=== PATIENT | male | born 1950 | race Caucasian/White ===

== ENCOUNTER 2019-12-14 09:11 | Outpatient (CLI) | payer OTHER, SELFPAY ==
--- NOTE | 2019-12-14 11:00 | NEURO_ITS ---
Patient Number: [id number] Impression: # Complains of restless legs and balance problems. 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 # Needle/EMG exam consistent with bilateral neurogenic change in distal muscles. Nerve Conduction Studies Anti Sensory Summary Table Stim Site NR Peak (ms) P-T Amp (?V) Site1 Site2 Delta-P (ms) Dist (cm) Brandt (m/s) Left Sup Fibular Anti Sensory (Ant Lat Mall) 14 cm 6.4 4.2 14 cm Ant Lat Mall 6.4 16.0 25 Right Sup Fibular Anti Sensory (Ant Lat Mall) 14 cm 3.7 1.6 14 cm Ant Lat Mall 3.7 16.0 43 Left Sural Anti Sensory (Lat Mall) Calf 6.1 6.8 Calf Lat Mall 6.1 16.0 26 Right Sural Anti Sensory (Lat Mall) Calf 4.5 15.8 Calf Lat Mall 4.5 16.0 36 Motor Summary Table Stim Site NR Onset (ms) O-P Amp (mV) Site1 Site2 Delta-0 (ms) Dist (cm) Brandt (m/s) Left Peroneal Motor (Vastus Med) Ankle 6.7 1.3 Popit Ankle 11.3 40.0 35 Popit 18.0 1.7 Right Peroneal Motor (Vastus Med) Ankle 5.9 1.8 Popit Ankle 10.4 41.0 39 Popit 16.3 2.6 Left Tibial Motor (Abd Lynn Brev) Ankle 5.6 5.1 Knee Ankle 14.0 42.0 30 Knee 19.6 2.9 Right Tibial Motor (Abd Lynn Brev) Ankle 6.0 4.3 Knee Ankle 12.4 44.0 35 Knee 18.4 2.9 F Wave Studies NR F-Lat (ms) L-R F-Lat (ms) Left Peroneal (Mrkrs) (EDB) 63.45 0.48 Right Peroneal (Mrkrs) (EDB) 62.97 0.48 Left Tibial (Mrkrs) (Abd Hallucis) 64.65 1.64 Right Tibial (Mrkrs) (Abd Hallucis) 63.01 1.64 EMG Side Muscle Nerve Root Ins Act Fibs Amp Dur Recrt Comment Right AntTibialis Dp Br Fibular L4-5 Nml Nml Nml Nml Nml Right Gastroc Tibial S1-2 Nml Nml Nml Nml Nml Right Fibularis Long Sup Br Fibular L5-S1 Nml Nml Nml Nml Nml Right Flex Dig Long Tibial L5-S2 Nml Nml Nml Nml Nml Right Ext Dig Brev Dp Br Fibular L5, S1 Nml Nml Decr >12ms Reduced Left AntTibialis Dp Br Fibular L4-5 Nml Nml Nml Nml Nml Left Gastroc Tibial S1-2 Nml Nml Nml Nml Nml Left Fibularis Long Sup Br Fibular L5-S1 Nml Nml Nml Nml Nml Left Flex Dig Long Tibial L5-S2 Nml Nml Nml Nml Nml Left Ext Dig Brev Dp Br Fibular L5, S1 Nml Nml Decr >12ms Reduced Right QuadratusFem QuadFemoris L4-5, S1 Nml Nml Nml Nml Nml Left QuadratusFem QuadFemoris L4-5, S1 Nml Nml Nml Nml Nml Left AbdHallucis MedPlantar S1-2 Nml Nml Decr >12ms Reduced Right AbdHallucis MedPlantar S1-2 Nml Nml Decr >12ms Reduced MTDD
== END 2019-12-14 09:12 | disposition home or self-care (01) ==
PROVIDERS: PCP Emergency Medicine; Visit Provider Emergency Medicine
DX: G25.81 Restless legs syndrome (principal); R20.2 Paresthesia of skin; M54.42 Lumbago with sciatica, left side; G89.29 Other chronic pain; G62.89 Other specified polyneuropathies
CPT/HCPCS: 95886; 95910

== ENCOUNTER 2021-07-06 08:03 | Emergency (ER) | payer OTHER, SELFPAY ==
[2021-07-06 08:15] VITALS: BP 121/73; PULSE 101; RESP 16; TEMP 36.3; O2SAT 98
[2021-07-06 08:26] VITALS: BP 121/73; PULSE 101; RESP 16; TEMP 36.3; O2SAT 98
--- NOTE | 2021-07-06 08:26 | ED.URI ---
HPI - URI/Sore Throat General Chief Complaint: Upper Respiratory Infection Stated Complaint: congestion Time Seen by Provider: 07/06/21 08:26 Source: patient and RN notes reviewed Mode of arrival: ambulatory Limitations: no limitations History of Present Illness HPI Narrative: 70-year-old male presents with concern for persistent cough, feeling of chest congestion, rhinorrhea and postnasal drainage. Reports symptoms started 8 days ago. Reports he had a negative PCR Covid test on . Reports he has been taking Mucinex DM with little relief. Reports cough worsens at night when he lies down. He denies nausea, vomiting, diarrhea. Denies sore throat or ear pain. Denies shortness of breath. MD elicited complaint: cough Related Data Home Medications Medication Instructions Recorded Confirmed fluticasone propionate 50 1 spray INTRANASAL BID 03/07/21 07/06/21 mcg/actuation nasal spray,suspension multivitamin 1 tablet PO DAILY 03/07/21 07/06/21 ropinirole 0.5 mg tablet 0.5 mg PO DAILY tablet 03/07/21 07/06/21 Allergies Allergy/AdvReac Type Severity Reaction Status Date / Time No Known Allergies Allergy Verified 06/09/21 14:54 Review of Systems Review of Systems: CONSTITUTIONAL: Denies malaise, chills, sweats, or fever. EYES: Denies visual changes, redness, or discharge. ENT: Reports rhinorrhea, postnasal drainage. Denies congestion, sinus pain, otalgia and sore throat. CARDIOVASCULAR: Denies chest pain, palpitations, or edema. RESPIRATORY: Reports cough. Denies dyspnea. GASTROINTESTINAL: Denies abdominal pain, nausea, vomiting, diarrhea SKIN: Denies rash or itching. MUSCULOSKELETAL: Denies myalgia. NEUROLOGIC: Denies headache. All systems reviewed & are unremarkable except as noted in HPI and below PMFSH Social History Social History Smoking status: Never smoker Alcohol intake: current Comments At time of signature, agree with nursing past medical, surgical, social and family history. There is no relevant family history pertinent to the presenting complaint Exam Narrative: GENERAL: Well-appearing, well-nourished, and in no acute distress. HEAD: Normocephalic EYES: PERRLA, conjunctivae clear ENT: Nares clear, clear discharge. Mucous membranes moist. TM pearly pierre with sharp light reflex bilaterally; no tragal tenderness. Oropharynx not erythematous without lesions. Tonsils not enlarged and without exudate, no drooling, no hoarseness, no trismus, uvula midline. NECK: Supple. No lymphadenopathy CHEST: Clear to auscultation, breath sounds equal. No wheezing, rhonchi, rales, or stridor. No respiratory distress, speaks in full sentences. HEART: Regular rate and rhythm. No murmur heard. SKIN: Warm, dry, no rash. NEURO: Alert and oriented x3. PSYCH: Normal mood and affect Course Course Emergency Course: Patient is aware of diagnosis, understands and agrees to treatment plan. Anticipatory guidance given. Patient agrees to follow-up as directed and is aware of reasons to seek care at the emergency department. Portions of this record may have been created with voice recognition software Vital Signs Vital signs: Vital Signs Temperature 97.3 F L 07/06/21 08:15 Pulse Rate 101 H 07/06/21 08:15 Respiratory Rate 16 07/06/21 08:15 Blood Pressure 121/73 07/06/21 08:15 Pulse Oximetry 98 07/06/21 08:15 Temperature 97.3 F L 07/06/21 08:26 Pulse Rate 101 H 07/06/21 08:26 Respiratory Rate 16 07/06/21 08:26 Blood Pressure 121/73 07/06/21 08:26 Pulse Oximetry 98 07/06/21 08:26 Reviewed. MDM - URI/Sore Throat MDM Narrative Medical decision making narrative: Differential diagnosis considered: Chambers virus, strep pharyngitis, allergic rhinitis, upper respiratory tract infection, sinusitis, rhinosinusitis, nasopharyngitis. viral pharyngitis, otitis media, otitis externa, pneumonia, bronchitis, viral cough syndrome, viral syndrome, and in
== END 2021-07-06 09:04 | disposition home or self-care (01) ==
PROVIDERS: Emergency Provider Nurse Practitioner; PCP Emergency Medicine
DX: J40 Bronchitis, not specified as acute or chronic (principal); Z20.822 Contact with and (suspected) exposure to COVID-19
CPT/HCPCS: 87426; 99213; C9803; G0463

== ENCOUNTER 2022-03-01 14:17 | Emergency (ER) | payer OTHER, SELFPAY ==
--- NOTE | 2022-03-01 14:22 | ED.URI ---
HPI - URI/Sore Throat General Chief Complaint: Upper Respiratory Infection Stated Complaint: uri Time Seen by Provider: 03/01/22 14:22 Source: patient, family (), RN notes reviewed and old records reviewed Mode of arrival: ambulatory Limitations: no limitations History of Present Illness HPI Narrative: 71-year-old male presents to [facility] with complaints of respiratory symptoms, cough, nasal pain and congestion. Symptoms started , 3 days ago. Denies any fevers. No cough or chest congestion. Denies chest pain or shortness of breath. Had used Afrin 1 time yesterday. Takes Claritin daily. Patient is nontoxic in no apparent distress Patient has been traveling over the last week and had been in different climates over the last week. MD elicited complaint: cough, nasal congestion and sinus pain Related Data Home Medications Medication Instructions Recorded Confirmed multivitamin 1 tablet PO DAILY 03/07/21 09/17/21 Allergies Allergy/AdvReac Type Severity Reaction Status Date / Time No Known Allergies Allergy Verified 09/17/21 14:34 Review of Systems Review of Systems: All systems reviewed & are unremarkable except as noted in HPI and below Constitutional: Constitutional: Reports no additional constitutional complaints, Denies chills, Denies fever(s) and Denies headache(s) Eyes: Eyes: Reports no additional eye complaints and Denies change in vision ENT: Reports as per HPI, Denies vertigo, Denies dizziness, Denies headache(s), Reports nasal congestion, Reports nasal discharge, Denies nose pain, Reports post nasal drip, Reports sinus pressure and Denies sore throat Cardiovascular: Cardiovascular: Reports no additional cardiovascular complaints, Denies chest pain, Denies syncope, Denies rapid heart rate and Denies dyspnea Respiratory: Respiratory: Reports no additional respiratory complaints, Denies cough, Denies dyspnea and Denies wheezing Gastrointestinal: Gastrointestinal: Reports no additional gastrointestinal complaints, Denies abdominal pain, Denies diarrhea, Denies nausea and Denies vomiting Musculoskeletal: Musculoskeletal: Reports no additional musculoskeletal complaints and Denies numbness Integumentary/Breasts: Skin/Breast: Reports system reviewed and no additional complaints, except as docu Neurologic: Reports system reviewed and no additional complaints, except as documented, Denies vertigo, Denies dizziness, Denies syncope, Denies headache(s), Denies focal weakness and Denies numbness Psychiatric: Psychiatric: Reports no additional psychiatric complaints Allergic/Immunologic: Allergic/Immunologic: Reports no additional allergic/immunologic complaints and Denies wheezing PMFSH Social History Social History Smoking status: Never smoker Alcohol intake: current Comments At the time of my signature, I reviewed and agree with the nursing past medical, surgical, social, and family history. There is no relevant family history pertinent to the patient complaint. Exam Const: General: cooperative, healthy appearing, no acute distress, well developed and alert Nutritional Appearance: well nourished Orientation/consciousness: patient oriented x3 Limitations: no limitations HENMT: Head: normal to inspection Ears: external ears normal, TM's normal bilaterally, EAC's normal and mastoids normal General nose exam: Abnormal mucous membranes and turbinates present boggy bilateral; not erythematous and Nasal discharge present clear and mucoid Face and sinus: sinus tenderness frontal and maxillary Mouth: Yes Normal oral and palatal mucosa present and Yes moist mucous membranes Throat: uvula midline, posterior oropharynx abnormal cobblestoning; no edema and no erythema and postnasal drainage Eyes: Conjunctivae: conjunctivae normal Pupils: Equal, round and reactive pupils present Neck: Neck: normal visual inspection, no lymphadenopathy and no meni
[2022-03-01 14:26] VITALS: BP 144/81; PULSE 75; RESP 16; TEMP 36.4; O2SAT 99
== END 2022-03-01 14:45 | disposition home or self-care (01) ==
PROVIDERS: Emergency Provider Nurse Practitioner
DX: J30.9 Allergic rhinitis, unspecified (principal); R09.82 Postnasal drip; G25.81 Restless legs syndrome
CPT/HCPCS: 99213; G0463

== ENCOUNTER 2022-05-11 09:50 | Outpatient (CLI) | payer OTHER, SELFPAY ==
--- NOTE | 2022-05-11 10:43 | ECG_ITS ---
Measurements Intervals [place]ger Rate: 74 P: 17 VA: 116 QRS: 26 QRSD: 94 T: 60 QT: 364 QTc: 405 Interpretive Statements SINUS RHYTHM WITH SHORT VA INTERVAL BASELINE ARTIFACT BORDERLINE ECG NO PREVIOUS ECG AVAILABLE FOR COMPARISON Electronically Signed On 05-11-2022 14:15:12 CDT by Damien Chin M.D.
[2022-05-11 11:24] LABS: Basophils Absolute Auto 0.1 K/mm3 (0.0-0.1); Basophils Percent Auto 0.8 % (0.2-1.2); Eosinophils Absolute Auto 0.2 K/mm3 (0-0.3); Eosinophils Percent Auto 1.8 % (0-4.4); Hematocrit 46.9 % (42.0-52.0); Hemoglobin 15.3 g/dL (14.0-18.0); Immature Granulocyte Percent A 1.1 % (0-0.5); Lymphocytes Absolute Auto 2.31 K/mm3 (0.9-3.2); Lymphocytes Percent Auto 24.8 % (18.3-44.2); Mean Corpuscular HGB Conc 32.6 g/dl (32-36); Mean Corpuscular Hemoglobin 30.7 pg (26-34); Mean Corpuscular Volume 94.2 fl (80-100); Mean Platelet Volume 9.5 fl (7.4-10.4); Monocytes Percent Auto 10.3 % (2.6-8.5); Neutrophils Absolute Auto 5.7 K/mm3 (1.3-6.7); Neutrophils Percent Auto 61.2 % (45.5-73.1); Platelet Count Result 250 k/mm3 (150-375); Red Blood Count 4.98 M/mm3 (4.6-6.20); White Blood Count 9.3 K/mm3 (4.5-10.0)
[2022-05-11 11:27] LABS: Urine Cotinine NEGATIVE
[2022-05-11 11:32] LABS: Albumin Level 4.5 g/dL (3.5-5.1); Estimated Glomerular Filt Rate > 60; Glucose 94 mg/dL (65-110)
[2022-05-11 11:59] LABS: Hemoglobin A1C 5.5 % (<5.7)
== END 2022-05-11 09:51 | disposition home or self-care (01) ==
LOC: ANHSURGERY 09:58
PROVIDERS: PCP Family Medicine; Visit Provider Orthopaedic Surgery
DX: M17.11 Unilateral primary osteoarthritis, right knee (principal); Z01.818 Encounter for other preprocedural examination
CPT/HCPCS: 80307; 82040; 82565; 82947; 83036; 85025; 86850; 86900; 86901; 87081; 93005

== ENCOUNTER 2022-05-20 01:53 | Day surgery (SDC) | payer OTHER, SELFPAY ==
--- NOTE | 2022-05-11 09:42 | PC.NURSE ---
PRE-OP INSTRUCTIONS, PLEASE READ CAREFULLY Report to the Outpatient Waiting Room, entrance under the green pavilion located off [facility], at time _0600_ on date _05/20/22_. OR Time: _0730_. - You and your visitor will be asked a series of questions to screen for COVID 19 for your protection. - A mask is required within the hospital. - Only one visitor is allowed at this time. - The patient visitor is requested to leave or wait in car when not with patient. - PACK A SMALL OVERNIGHT BAG AND LEAVE IN THE CAR. VISITING HOURS 10AM-8PM, PARK IN FRONT PARKING LOT AND USE MAIN HOSPITAL ENTRANCE Patients may have clear liquids (water, carbonated beverages, clear teas, apple juice) until 3 hours prior to surgery (0430 AM) with a maximum of 20 ounces. - No food from midnight until time of surgery Take the following medications with a SIP of water the morning of surgery: _NONE_ Medications to discontinue per ANESTHESIA -_MULTIVITAMIN 3 DAYS PRIOR TO SURGERY, Date to take last dose 05/16/22_ Please no deodorant, or body powder the day of surgery. No jewelry (including any body piercings) or valuables the day of surgery, leave them at home. Please take a shower or bath the night before, or the morning of, surgery with an antibacterial soap. Wear comfortable, loose fitting clothing. - Jewelry must be removed prior to entering the operating room. Rings and piercings that are not removed may be cut off. - The hospital will not accept responsibility for valuables. - Please leave all valuables, including medications, at home the day of surgery. If you are going home after surgery, a licensed tow truck driver must drive you home. - NO public transportation without another adult. - We recommend that an adult stay with you for 24 hours following discharge. - We also recommend that you do not drive, make important decision, drink alcoholic beverages, or take any drugs that were not prescribed by your health care provider for at least 24 hours after your discharge time. Follow any additional instructions given to you from your surgeon. TOTAL JOINT CLASS 05/13/22 @ 1000 AM [facility], USE MAIN ENTRANCE - LOWER LEVEL If you or anyone in your household have experienced Covid symptoms in the past week, please notify your surgeon or the nurse liaison at the phone number below for possible testing. Instructions given to _PT_and asked if any additional questions and then verbalized understanding. Patient advised to call surgeon office or pre surgery nurse liaison [phone] if any additional questions.
[2022-05-11 10:18] VITALS: BP 150/90; PULSE 88; RESP 20; TEMP 36.8; O2SAT 100; BMI 22.4
--- NOTE | 2022-05-18 11:34 | PM.IMHP ---
H&P: HPI History of Present Illness Date/Time: 05/18/22 11:34 The patient is a 71-year-old male who presents with a chronic history of right knee pain. This is due to advanced primary osteoarthritis. The patient has aching pain worse with activity somewhat relieved by rest. He has trouble with squatting kneeling standing for any amount of time he cannot walk for long periods. Used to walk for exercise he no longer can do this. He had x-rays which show [id number] changes in the right knee he has tried a long course of conservative measures including cortisone therapy and anti-inflammatories without significant long-term relief. He is tired of living with it it limits what he can do affect his lifestyle. At this point the patient has discussed risks benefits limitations and alternatives to surgery in great detail Dr. Kirkpatrick he would now like to proceed with a right total knee arthroplasty. Chief Complaint: Right knee pain due to advanced primary osteoarthritis. Review of Systems Constitutional: Constitutional: Reports as per HPI and Reports no additional constitutional complaints Eyes: Comments: Unremarkable ENT: Comments: unremarkable Cardiovascular: Comments: unremarkable Respiratory: Comments: unremarkable Gastrointestinal: Comments: unremarkable Genitourinary: Comments: unremarkable Musculoskeletal: Musculoskeletal: Reports as per HPI Neurologic: Comments: unremarkable Psychiatric: Comments: unremarkable Endocrine: Comments: unremarkable Hematologic/Lymphatic: Comments: unremarkable Allergic/Immunologic: Comments: unremarkable [facility] Social History Social History Smoking status: Never smoker Second hand tobacco smoke exposure: No Additional smoking assessment comments: PT DENIES ALL FORMS OF TOBACCO USE Alcohol intake: current Drinks per week: 2 Substance use: never Substance use type: does not use Spiritual care concerns: No Meds Home Medications and Allergies Home Medications Medication Instructions Recorded Confirmed Type multivitamin (Multiple Vitamins 1 tablet PO DAILY 03/07/21 05/11/22 History tablet) fluticasone propionate 50 2 spray intranasal DAILY PRN 05/11/22 05/11/22 History mcg/actuation nasal Congestion spray,suspension (Flonase Allergy Relief) loratadine 10 mg tablet 10 mg PO DAILY PRN Congestion 05/11/22 05/11/22 History ropinirole 0.5 mg tablet 0.5 mg PO HS 05/11/22 05/11/22 History Allergies Allergy/AdvReac Type Severity Reaction Status Date / Time aspirin Allergy Mild Hives Verified 05/15/22 11:17 adhesive tape AdvReac Mild SKIN Verified 05/15/22 11:17 IRRITATION Penicillins AdvReac Mild Hives Verified 05/15/22 11:17 Exam Narrative: on exam the patient is noted be well-developed well-nourished male no acute distress alert oriented x3. Normal mood and affect. Patient is noted be 5 ft 11 in tall 156 lb with a BMI of 21.8. Hearing and vision intact. Respiratory is good no distress. Pulse regular rhythm. Abdomen benign. Extremities showed the patient's right knee to be painful with manipulation and range of motion. He has tenderness on the joint lines and pain with extremes of motion. He has subpatellar crepitation no effusion or swelling no erythema heat or other signs of infection. Does have pain through the arc of motion no instability is noted. There is no effusion or swelling no erythema heat or other signs of infection. Hips move well with negative Stinchfield negative Galo. Neurovascular is intact. Strength is 5 5. Walks with a limp because of his right knee pain. Central nervous system within normal limits. Skin is intact without rashes or lesions. Assessment and Plan Assessment and plan (1) Primary osteoarthritis of right knee: Code(s): M17.11 - Unilateral primary osteoarthritis, right knee Status: Acute Pl
[2022-05-20] VITALS (12 sets, daily range): BP systolic 134–177; BP diastolic 68–95; PULSE 74–94; RESP 10–16; TEMP 36.3–36.8; O2SAT 92–100
--- NOTE | ~2022-05-20 | XR_ITS ---
EXAMINATION: XR knee RT 2V DATE: 05/20/2022 09:42 INDICATION: Partial knee arthroplasty. Postop. TECHNIQUE: 2 views of right knee were obtained. COMPARISON: None. FINDINGS: There is a total right knee arthroplasty with patellar resurfacing in near-anatomic alignme nt. No fracture. There is gas in the knee joint and soft tissues, consistent with recent surgery. Ant erior skin gayatri are noted. IMPRESSION: 1. Total right knee arthroplasty in near-anatomic alignment. Reviewed, dictated and finalized at location A.
[2022-05-20] MEDS: LACTATED RINGERS 1,000 ML 30 ML IV CONT ×2 (06:20→09:30)
[2022-05-20] MEDS: ACETAMINOPHEN 500 MG TABLET 1000 MG PO (06:23)
[2022-05-20] MEDS: TRANEXAMIC ACID 1,000MG/ISO100 1,000 MG/100 ML BAG 200 MG IVPB (06:23)
--- NOTE | 2022-05-20 07:05 | WPDHPUPDATE1 ---
History and Physical Update Update Date/Time: 05/20/22 07:05 History and Physical has been reviewed, including an updated exam of the patient. There are NO changes in the patient's condition. Risks, benefits, and alternatives have been discussed and questions answered. Patient agrees to proceed with procedure.
--- NOTE | 2022-05-20 07:08 | WPDANESEPPF ---
Anes - Initial Pre Proc Eval Procedure: Operation Date: 05/20/22 07:30 Proposed Procedures p Right Total Knee Arthroplasty - Edmond Kirkpatrick MD Date/Time: 05/20/22 07:08 Surgeon: Edmond Kirkpatrick MD Pre Op Diagnosis: OA right knee Patient Data Age: 71 Gender: M Height: 1.8 m Weight: 71.3 kg Last Vital Signs Temp 36.8 C 05/11/22 10:18 Pulse 88 05/11/22 10:18 Resp 20 05/11/22 10:18 BP 150/90 H 05/11/22 10:18 Pulse Ox 100 05/11/22 10:18 O2 Del Method Room Air 05/11/22 10:18 Allergies Allergy/AdvReac Type Severity Reaction Status Date / Time aspirin Allergy Mild Hives Verified 05/20/22 06:39 adhesive tape AdvReac Mild SKIN Verified 05/20/22 06:39 IRRITATION Penicillins AdvReac Mild Hives Verified 05/20/22 06:39 Home Medications Medication Instructions Recorded Confirmed Type multivitamin (Multiple Vitamins 1 tablet PO DAILY 03/07/21 05/20/22 History tablet) fluticasone propionate 50 2 spray intranasal DAILY PRN 05/11/22 05/20/22 History mcg/actuation nasal Congestion spray,suspension (Flonase Allergy Relief) loratadine 10 mg tablet 10 mg PO DAILY PRN Congestion 05/11/22 05/20/22 History ropinirole 0.5 mg tablet 0.5 mg PO HS 05/11/22 05/20/22 History Patient hx anesthesia problems: none Family hx anesthesia problems: none Results Review: All pre-operative results and documents have been reviewed as part of the pre-operative evaluation. [facility] Past Medical History Medical History Restless leg syndrome Social History Social History Smoking status: Never smoker Second hand tobacco smoke exposure: No Additional smoking assessment comments: PT DENIES ALL FORMS OF TOBACCO USE Alcohol intake: current Drinks per week: 2 Substance use: never Substance use type: does not use Living arrangements: with family Spiritual care concerns: No Anes - Eval Final PreProcedure Day of Procedure 05/20/22 07:08 Patient weight: normal Heart: regular rate and rhythm Lungs: clear to auscultation Airway: Mallampati scale class II Neurological: alert and oriented Last oral intake: >/= 8 hours ASA classification: II Emergent: no Anesthetic plan: proceed Anesthesia type and monitoring: general LMA and standard monitoring Results Review: All pre-operative results and documents have been reviewed as part of the pre-operative evaluation. Informed Consent: The patient's anesthetic plan and its attendant risks and benefits were discussed with the patient/family/POA. Questions were solicited and answers provided to the satisfaction of the patient/family/POA.
--- NOTE | 2022-05-20 07:32 | WPDANESPNB ---
Anes - Peripheral Nerve Block Date/Time: 05/20/22 07:32 I have discussed with the patient/family/POA the placement of a peripheral nerve block for post-operative pain management, including associated risks, benefits, complications, and side effects. Alternative methods of post-operative analgesia were detailed. Questions were solicited and answers provided to the satisfaction of the patient/family/POA. Time-Out: A pre-procedural Time-Out was completed immediately before starting the procedure and confirmed: Patient Identification, Site, Procedure, Patient Position and the Availability of Requisite Equipment. Clinical Indications: Acute post-operative pain management requested by the operative surgeon. Nerve Block Insertion Note Anes-nerve block: adductor canal right Patient position: supine Skin prep: chlorhexidine Needle: 22 gauge, stimulating, insulated echogenic needle. Needle length: 80 mm Technique: ultrasound Technique comment: mid2mg fent 100mcg Injectate: bupivacaine 0.5% with epi 5 mcg/ml (30ml no epi) and dexamethasone (mg) (4) Observations: tolerated well Complications: none Procedure start time:: 723 Procedure end time:: 728
[2022-05-20] MEDS: ceFAZolin 2 GM/D5W 50 ML 2 GM/50 ML BAG IVPB ×3 (07:37→23:47)
[2022-05-20] MEDS: GENTAMICIN BONE CEMENT REFOBACIN 1 EACH TOPICAL (08:28)
--- NOTE | 2022-05-20 08:55 | W.PM.PROC2 ---
Procedure Note - Detailed Date of Procedure 05/20/22 Pre-op Diagnosis OA right knee Post-op Diagnosis Same Procedure Performed [Right] total knee arthroplasty Surgeon Edmond Kirkpatrick MD Tension Machine Operator Kenan Oropeza Anesthesia General Indications Arthritis Description of Procedure The patient was brought to the operating room. General anesthetic was administered. Placed on the operating table and sterilely prepped and draped in usual manner. A longitudinal incision was made. Tourniquet inflated to 300 mmHg for a total of [46] minutes. Dissection carried down to the fascia. Medial parapatellar incision was made and the patella subluxated laterally. Patella cut from [26] to [16] mm and sized for a [37] mm button. The tibia cut perpendicular to the long axis and femur cut in 5 degrees of valgus, a [70] femur trialed. [75] tibia was felt to fit the best. The soft tissue balanced, hemostasis obtained. All [address], [75] tibia, [70] femur, [37] mm patella, and [11 ] mm poly. Motion was 0-125 degrees with good stablility and flexion and extension. The wound was closed with #2 vicryl, 2-0 Vicryl and gayatri. [employer] Estimated Blood Loss 200 Drains No Packing No Pathology None sent Complications No immediate complications Condition Stable Disposition PACU
[2022-05-20] MEDS: fentaNYL CITRATE INJ (*CRX) 100 MCG/2 ML VIAL 25 MCG IV PUSH ×5 (09:47→10:28)
--- NOTE | 2022-05-20 11:43 | ADMGEN ---
This patient, Aston De La Fuente, was admitted to Medical Room 256-. Patient/family oriented to hospital policies and general routines including ID bracelet, bed and alarms, visiting hours, pain management, procedures, bathroom and other care routines, personal items, smoking policy, room service/diet, and visiting hours. Information on how to activate the Rapid Response Team has been discussed. Patient/Family are encouraged to report perceived risks to care and to ask questions if they do not understand what they are told or what they should do.
[2022-05-20] MEDS: SODIUM CHLORIDE 0.9% IV 1,000 ML 125 ML IV CONT (11:55)
[2022-05-20] MEDS: HYDROcodone/acetaminophen (*CRX) 5-325 MG TABLET 1 TAB PO ×3 (12:49→23:46)
[2022-05-20] MEDS: ONDANSETRON INJ 4 MG/2 ML VIAL IV PUSH (13:38)
[2022-05-20] MEDS: SENNA/DOCUSATE SODIUM TABLET 2 TAB PO (16:46)
[2022-05-20] MEDS: RIVAROXABAN 10 MG TABLET PO (16:46)
[2022-05-20] MEDS: rOPINIRole HCL 0.5 MG TABLET PO (20:55)
[2022-05-21 04:34] VITALS: BP 140/63; PULSE 65; RESP 16; TEMP 36.6; O2SAT 100
[2022-05-21] MEDS: HYDROcodone/acetaminophen (*CRX) 5-325 MG TABLET 1 TAB PO ×2 (05:38→10:43)
[2022-05-21 06:30] LABS: Basophils Percent Auto 0.1 % (0.2-1.2); Hematocrit 37.9 % (42.0-52.0); Hemoglobin 12.4 g/dL (14.0-18.0); Immature Granulocyte Absolute 0.09 K/mm3 (0.00-0.031); Immature Granulocyte Percent A 0.5 % (0-0.5); Lymphocytes Absolute Auto 1.75 K/mm3 (0.9-3.2); Mean Corpuscular HGB Conc 32.7 g/dl (32-36); Mean Corpuscular Volume 91.5 fl (80-100); Mean Platelet Volume 9.8 fl (7.4-10.4); Monocytes Absolute Auto 2.6 K/mm3 (0.1-0.6); Monocytes Percent Auto 14.7 % (2.6-8.5); Neutrophils Absolute Auto 13.1 K/mm3 (1.3-6.7); Neutrophils Percent Auto 74.7 % (45.5-73.1); Platelet Count Result 203 k/mm3 (150-375); Red Blood Count 4.14 M/mm3 (4.6-6.20); Red Cell Distribution Width 12.8 % (11.5-14.5); White Blood Count 17.5 K/mm3 (4.5-10.0)
[2022-05-21 06:57] LABS: Anion Gap 7 mmol/L (8-16); Blood Urea Nitrogen 16 mg/dL (9-20); Calcium 8.8 mg/dL (8.4-10.2); Carbon Dioxide 27 mmol/L (22-30); Chloride 100 mmol/L (98-107); Estimated CRCL calculation 68 ml/min; Estimated Glomerular Filt Rate > 60; Glucose 139 mg/dL (65-110); Potassium 4.2 mmol/L (3.4-5.0); Sodium 134 mmol/L (137-145)
[2022-05-21] MEDS: ceFAZolin 2 GM/D5W 50 ML 2 GM/50 ML BAG IVPB (09:13)
[2022-05-21] MEDS: polyethylene glycoL 3350 17 GM POWD.PACK PO (09:14)
[2022-05-21] MEDS: SENNA/DOCUSATE SODIUM TABLET 2 TAB PO (09:15)
[2022-05-21] MEDS: MULTIVITAMINS THERAPEUTIC TAB (*BKC) 1 TABLET PO (09:16)
--- NOTE | 2022-05-21 09:39 | W.PM.PROC2 ---
Procedure Note - Detailed Date of Procedure 05/20/22 Pre-op Diagnosis OA right knee Post-op Diagnosis Same Procedure Performed right total knee arthroplasty Surgeon Edmond Kirkpatrick MD Environmental Technology Professor Kenan Oropeza p.a.-C Anesthesia General Indications primary osteoarthritis right knee Findings primary osteoarthritis right knee Description of Procedure I assisted in positioning prepping and draping the patient for right total knee arthroplasty. Once the surgeon was present and made the initial incision I assisted with maintaining control of blood loss with cauterization, wound exposure with retraction, and suction throughout the surgical procedure. Once the surgeon was through with the actual implantation of the prosthetic components I then proceeded to close the wound in multiple layers starting with the deep tissues and capsule of the knee joint followed by subcutaneous and superficial layers of the skin. I then applied a sterile dressing and helped transfer the patient from the bed to the stretcher and out of the operating room into the recovery room. Estimated Blood Loss 200 Urine Output 300 Complications No immediate complications Disposition PACU
[2022-05-21 10:08] VITALS: BP 103/61; PULSE 90; RESP 16; TEMP 36.8; O2SAT 100
--- NOTE | 2022-05-21 10:12 | PM.DS ---
DS: Admitting Diagnosis Discharge Date 05/21/2022 Admitting Diagnosis admitting diagnosis primary osteoarthritis right knee discharge diagnosis primary osteoarthritis right knee, status post right total knee arthroplasty DS: Discharge Diagnosis Discharge Diagnosis Plan patient underwent right total knee arthroplasty performed by Dr. Kirkpatrick 05/20/2022 discharged home general diet stable condition will do physical therapy as an outpatient. Follow up with Dr. Kirkpatrick in 2 weeks we will continue anticoagulation therapy was relative 0 10 mg daily for 2 weeks total in addition to [place] 7.5 mg every 6 hours p.r.n. severe pain. DS: Summary Hospital Course Reason for hospitalization: Status post right total knee arthroplasty Hospital Course: patient had severe primary osteoarthritis right knee, on 05/20/2022 the patient underwent right total knee arthroplasty performed by Dr. Kirkpatrick. Patient did well no postoperative complications were noted. Postop day 1 the patient was up ambulating independently with a walker touchdown to full weight-bearing as tolerated wound was clean and dry calves are benign neurovascular is intact pain is well controlled. The patient was discharged home postop day 1 in stable /good condition Status at Discharge Cognitive/behavioral status at discharge: normal Time Spent with Patient Time attestation: Total time spent providing and/or coordinating discharge services: Exam Narrative: vital signs stable afebrile neurovascular patient tacked when clean dry calves are benign ambulating independently pain is well controlled patient is alert oriented x3. Normal mood and affect. Eating and drinking well. DS: Data Data Completed and Pending Labs on day of discharge: Labs from last 24 hours 05/21/22 05/21/22 06:11 06:11 WBC 17.5 H RBC 4.14 L Hgb 12.4 L Hct 37.9 L MCV 91.5 MCH 30.0 MCHC 32.7 RDW 12.8 Plt Count 203 MPV 9.8 Immature Gran % (Auto) 0.5 Neut % (Auto) 74.7 H Lymph % (Auto) 10.0 L [place] % (Auto) 14.7 H Eos % (Auto) 0.0 Baso % (Auto) 0.1 L Lymph # (Auto) 1.75 [place] # (Auto) 2.6 H Eos # (Auto) 0.0 Baso # (Auto) 0.0 Abs Immat Gran (auto) 0.09 H Absolute Neuts (auto) 13.1 H Absolute Nucleated RBC 0.0 Nucleated RBC % 0.0 Sodium 134 L Potassium 4.2 Chloride 100 Carbon Dioxide 27 Anion Gap 7 L BUN 16 Creatinine 0.90 Estim Creat Clear Calc 68 Estimated GFR > 60 Glucose 139 H Calcium 8.8 Procedures/Treatments: Right total knee arthroplasty Discharge Plan Discharge Patient Disposition: Home, Self-Care Discharge Instructions: Orthopedic Patient Instructions: Rivaroxaban (By mouth) Stand Alone Forms: Avoid NSAIDs, General Discharge Instructions Follow-up/Referrals: Edmond Kirkpatrick MD [Physician] - Discharge Medications: New hydrocodone-acetaminophen 7.5-325 mg tablet 1 tablet PO Q4H PRN (Reason: pain) Qty: 40 0RF fluticasone propionate 50 mcg/actuation [place],Suspension 2 spray intranasal DAILY PRN (Reason: Congestion) Qty: 16 0RF loratadine 10 mg Tablet 10 mg PO DAILY PRN (Reason: Congestion) Qty: 30 0RF rivaroxaban 10 mg Tablet 10 mg PO DAILY@17 Qty: 14 0RF multivitamin with folic acid [Thera] 400 mcg Tablet 1 tablet PO DAILY Qty: 30 0RF Continued multivitamin [Multiple Vitamins] Tablet 1 tablet PO DAILY loratadine 10 mg Tablet 10 mg PO DAILY PRN (Reason: Congestion) ropinirole 0.5 mg tablet 0.5 mg PO HS fluticasone propionate [Flonase Allergy Relief] 50 mcg/actuation spray,suspension 2 spray intranasal DAILY PRN (Reason: Congestion) Rx Instructions: administer into each nostril
--- NOTE | 2022-05-21 10:12 | WPDANESPN ---
Anes - Prog Note Post-Op Date/Time: 05/21/22 10:12 Cardiovascular status: normal Respiratory status: normal Airway patency: baseline Mental status: baseline Post-Op hydration status: normal Vital Signs: Last Vital Signs Temp 97.9 F 05/21/22 04:34 Pulse 65 05/21/22 04:34 Resp 16 05/21/22 04:34 BP 140/63 05/21/22 04:34 Pulse Ox 100 05/21/22 04:34 O2 Del Method Room Air 05/20/22 20:00 O2 Flow Rate 8 05/20/22 10:05 Pain Score (VAS): 2 I/O: Intake & Output 05/20/22 05/21/22 05/21/22 23:59 07:59 15:59 Intake Total 440 1350 240 Output Total 1250 600 300 Balance -810 750 -60 Laboratory Tests 05/21/22 06:11 05/21/22 06:11 05/21/22 05/21/22 06:11 06:11 WBC 17.5 H RBC 4.14 L Hgb 12.4 L Hct 37.9 L MCV 91.5 MCH 30.0 MCHC 32.7 RDW 12.8 Plt Count 203 MPV 9.8 Immature Gran % (Auto) 0.5 Neut % (Auto) 74.7 H Lymph % (Auto) 10.0 L [place] % (Auto) 14.7 H Eos % (Auto) 0.0 Baso % (Auto) 0.1 L Lymph # (Auto) 1.75 [place] # (Auto) 2.6 H Eos # (Auto) 0.0 Baso # (Auto) 0.0 Abs Immat Gran (auto) 0.09 H Absolute Neuts (auto) 13.1 H Absolute Nucleated RBC 0.0 Nucleated RBC % 0.0 Sodium 134 L Potassium 4.2 Chloride 100 Carbon Dioxide 27 Anion Gap 7 L BUN 16 Creatinine 0.90 Estim Creat Clear Calc 68 Estimated GFR > 60 Glucose 139 H Calcium 8.8 Patient Feedback: Patient satisfied with anesthetic care. Other Findings: pt verbalized good relief with PNB
== END 2022-05-21 11:38 | disposition home or self-care (01) ==
LOC: ANHSURGERY 09:09 → ANH2MED 10:58
PROVIDERS: PCP Family Medicine; Visit Provider Orthopaedic Surgery
PROC: (CPT 27447; principal; 2022-05-20 07:30)
DX: M17.11 Unilateral primary osteoarthritis, right knee (principal); G89.18 Other acute postprocedural pain; G25.81 Restless legs syndrome
CPT/HCPCS: 27447; 64447; 36415; 73560; 80048; 80307; 82040; 82565; 82947; 83036; 85025; 86850; 86900; 86901; 87081; 93005; 97110; 97116; 97161; 97165; 97530; 97535; A9270; C1713; C1776; J0171; J0690; J1100; J1170; J2250; J2270; J2405; J2704; J2795; J3010; J3370; J7030; J7120

== ENCOUNTER 2023-05-26 07:03 | Outpatient (CLI) | payer OTHER, SELFPAY ==
[2023-05-26 07:56] LABS: Basophils Absolute Auto 0.1 K/mm3 (0.0-0.1); Basophils Percent Auto 1.1 % (0.2-1.2); Eosinophils Absolute Auto 0.3 K/mm3 (0-0.3); Eosinophils Percent Auto 2.2 % (0-4.4); Hematocrit 47.5 % (42.0-52.0); Hemoglobin 15.4 g/dL (14.0-18.0); Immature Granulocyte Absolute 0.58 K/mm3 (0.00-0.031); Immature Granulocyte Percent A 4.8 % (0-0.5); Lymphocytes Absolute Auto 3.12 K/mm3 (0.9-3.2); Mean Corpuscular HGB Conc 32.4 g/dl (32-36); Mean Corpuscular Hemoglobin 30.1 pg (26-34); Mean Corpuscular Volume 92.8 fl (80-100); Mean Platelet Volume 9.2 fl (7.4-10.4); Monocytes Absolute Auto 1.1 K/mm3 (0.1-0.6); Monocytes Percent Auto 9.5 % (2.6-8.5); Neutrophils Absolute Auto 6.8 K/mm3 (1.3-6.7); Neutrophils Percent Auto 56.4 % (45.5-73.1); Platelet Count Result 283 k/mm3 (150-375); Red Blood Count 5.12 M/mm3 (4.6-6.20); Red Cell Distribution Width 13.2 % (11.5-14.5)
[2023-05-26 08:06] LABS: Alanine Aminotransferase 36 U/L (6-50); Albumin Level 4.5 g/dL (3.5-5.1); Alkaline Phosphatase 100 U/L (38-126); Anion Gap 8 mmol/L (8-16); Aspartate Amino Transferase 33 U/L (17-59); Bilirubin,Total 0.6 mg/dL (0.2-1.3); Blood Urea Nitrogen 30 mg/dL (9-20); Calcium 8.9 mg/dL (8.4-10.2); Carbon Dioxide 29 mmol/L (22-30); Chloride 101 mmol/L (98-107); Estimated Glomerular Filt Rate > 60; Glucose 92 mg/dL (65-110); Potassium 4.4 mmol/L (3.4-5.0); Sodium 138 mmol/L (137-145)
[2023-05-29 14:12] LABS: SS-A <1.0; SS-B <1.0
[2023-05-30 14:26] LABS: Vitamin B6 41.9 ng/mL (2.1-21.7)
[2023-06-01 11:48] LABS: Anti Nuclear Antibody Pattern Nuclear, Nucleolar
[2023-06-02 14:46] LABS: Vitamin B1 116 nmol/L (8-30)
[2023-06-03 17:53] LABS: GM-1 Ab (IgG) <1:800 titer (<1:800); GM-1 Ab (IgM) <1:800 titer (<1:800)
== END 2023-05-26 07:04 | disposition home or self-care (01) ==
PROVIDERS: PCP Family Medicine; Visit Provider Student in an Organized Health Care Education/Training Program
DX: G62.9 Polyneuropathy, unspecified (principal)
CPT/HCPCS: 36415; 80053; 82607; 83520; 84207; 84425; 85025; 86038; 86039; 86235; 86334; 86335

== ENCOUNTER 2023-09-23 13:07 | Outpatient (CLI) | payer OTHER, SELFPAY ==
[2023-09-27 11:07] LABS: Vitamin B6 9.7 ng/mL (2.1-21.7)
== END 2023-09-23 13:08 | disposition home or self-care (01) ==
LOC: ANHLAB 13:09
PROVIDERS: PCP Family Medicine; Visit Provider Student in an Organized Health Care Education/Training Program
DX: G62.9 Polyneuropathy, unspecified (principal)
CPT/HCPCS: 36415; 84207

== ENCOUNTER 2023-11-05 08:29 | Outpatient (CLI) | payer OTHER, SELFPAY ==
[2023-11-05 08:49] LABS: Basophils Absolute Auto 0.1 K/mm3 (0.0-0.1); Basophils Percent Auto 0.6 % (0.2-1.2); Eosinophils Absolute Auto 0.2 K/mm3 (0-0.3); Eosinophils Percent Auto 2.7 % (0-4.4); Hematocrit 45.5 % (42.0-52.0); Hemoglobin 14.9 g/dL (14.0-18.0); Immature Granulocyte Absolute 0.04 K/mm3 (0.00-0.031); Immature Granulocyte Percent A 0.5 % (0-0.5); Lymphocytes Absolute Auto 1.82 K/mm3 (0.9-3.2); Lymphocytes Percent Auto 23.1 % (18.3-44.2); Mean Corpuscular HGB Conc 32.7 g/dl (32-36); Mean Corpuscular Hemoglobin 29.9 pg (26-34); Mean Corpuscular Volume 91.4 fl (80-100); Mean Platelet Volume 9.5 fl (7.4-10.4); Monocytes Absolute Auto 0.8 K/mm3 (0.1-0.6); Monocytes Percent Auto 10.2 % (2.6-8.5); Neutrophils Percent Auto 62.9 % (45.5-73.1); Platelet Count Result 197 k/mm3 (150-375); Red Blood Count 4.98 M/mm3 (4.6-6.20); Red Cell Distribution Width 12.8 % (11.5-14.5); White Blood Count 7.9 K/mm3 (4.5-10.0)
[2023-11-05 09:01] LABS: Alanine Aminotransferase 20 U/L (6-50); Alkaline Phosphatase 102 U/L (38-126); Anion Gap 3 mmol/L (8-16); Aspartate Amino Transferase 27 U/L (17-59); Bilirubin,Total 0.8 mg/dL (0.2-1.3); Blood Urea Nitrogen 18 mg/dL (9-20); Calcium 9.1 mg/dL (8.4-10.2); Carbon Dioxide 31 mmol/L (22-30); Chloride 103 mmol/L (98-107); Cholesterol 214 mg/dL (0-200); Estimated Glomerular Filt Rate > 60; Glucose 101 mg/dL (65-110); HDL Direct 46 mg/dL; Potassium 4.4 mmol/L (3.4-5.0); Sodium 137 mmol/L (137-145); Triglycerides 136 mg/dL (<150)
[2023-11-05 09:12] LABS: LDL Cholesterol Direct 133 mg/dL
[2023-11-05 09:29] LABS: Prostate Specific Antigen 2.9 ng/mL (< OR = 4.0)
== END 2023-11-05 08:30 | disposition home or self-care (01) ==
LOC: ANHLAB 08:29
PROVIDERS: PCP Family Medicine; Visit Provider Family Medicine
DX: G62.9 Polyneuropathy, unspecified (principal); R79.89 Other specified abnormal findings of blood chemistry; G25.81 Restless legs syndrome; Z86.39 Personal history of other endocrine, nutritional and metabolic disease; Z12.5 Encounter for screening for malignant neoplasm of prostate
CPT/HCPCS: 36415; 80053; 80061; 84153; 84443; 85025; G0103

== ENCOUNTER 2024-01-11 10:31 | Outpatient (CLI) | payer OTHER, SELFPAY ==
[2024-01-15 14:44] LABS: Vitamin B6 8.6 ng/mL (2.1-21.7)
== END 2024-01-11 10:32 | disposition home or self-care (01) ==
PROVIDERS: PCP Family Medicine; Visit Provider Student in an Organized Health Care Education/Training Program
DX: G62.9 Polyneuropathy, unspecified (principal)
CPT/HCPCS: 36415; 84207

== ENCOUNTER 2024-05-11 12:27 | Outpatient (CLI) | payer OTHER, SELFPAY ==
--- NOTE | 2024-05-11 14:45 | NEURO_ITS ---
Clinical note: The patient is 73-year-old with complaints of tingling and numbness in both feet legs and thighs. Patient denies any pain in the lower back. Summary of findings: 1. Left and right peroneal motor distal latencies are moderately prolonged wears amplitudes were within normal range. Conduction velocity mild to moderately decreased. There was no significant slowing across the fibular head. 2. Left and right tibial motor distal latencies are mild to moderately prolonged wears amplitudes were mildly decreased and conduction velocity also mildly decreased. 3. Right medial plantar and bilateral sural sensory responses were absent. 4. Bilateral H reflexes were absent 5. EMG examination is performed using a monopolar needle electrode. Various muscles examined in both lower limbs and related paraspinal muscles. No denervation changes were seen. Mild to moderate decreased recruitment was noted in both medial gastrocnemius. No denervation changes seen paraspinal muscles. Impression: EMG nerve can study is supportive diagnosis of moderate diffuse alone length- dependent, sensory motor polyneuropathy with mixed features. Possibility of demyelinating polyneuropathy need be considered in view of these findings. There is no supportive evidence for L3-S1 radiculopathy however if clinically relevant radiographic correlation may be helpful. Amadou Chaudhary MD, FAAN, FAANEM Neurology and electrodiagnostic Medicine Nerve Conduction Studies Motor Nerve Results Latency Amplitude Segment Distance CV Site (ms) Norm (mV) Norm (cm) (m/s) Norm Ankle 6.0 < 6.1 2.6 > 2.0 Bel Fib Head 15.0 - 2.0 - Bel Fib Head-Ankle 310 34 > 38 Pop Fossa 17.9 - 2.0 - Pop Fossa-Bel Fib Head 80 28 > 42 Ankle 7.3 < 6.1 2.0 > 2.0 Bel Fib Head 16.7 - 2.4 - Bel Fib Head-Ankle 310 33 > 38 Pop Fossa 18.8 - 2.4 - Pop Fossa-Bel Fib Head 80 38 > 42 Ankle 6.8 < 6.1 5.8 > 4.4 Knee 18.8 - 3.6 - Knee-Ankle 435 36 > 39 Ankle 5.8 < 6.1 4.7 > 4.4 Knee 19.3 - 2.8 - Knee-Ankle 440 33 > 39 Sensory Nerve Results Latency (Peak) Amplitude (P-P) Segment Distance CV Comments Site (ms) Norm (?V) Norm (cm)l (m/s) Norm Right Medial Plantar (Mixed) Sensory Med Sole-Med Mall NR < 3.7 NR > 10 Med Sole-Med Mall 110 NR - NO RESPONSE Left Sural Sensory Calf-Lat Mall NR < 4.0 NR > 5 Calf-Lat Mall 120 NR > 35 NO RESPONSE Right Sural Sensory Calf-Lat Mall NR < 4.0 NR > 5 Calf-Lat Mall 120 NR > 35 NO RESPONSE H-Reflex Results M-Lat H Lat H-M Lat Site (ms) (ms) Norm (ms) Left Tibial H-Reflex Pop Fossa - NR - NR Right Tibial H-Reflex Pop Fossa - NR - NR Electromyography Side Muscle Nerve Ins Act Fibs Psw Amp Dur Recrt Comment Right BicepsFemS Sciatic Nml Nml Nml Nml Nml Nml Right Semimembranosus Sciatic Nml Nml Nml Nml Nml Nml Right AntTibialis Dp Br Fibular Nml Nml Nml Nml Nml Nml Right Gastroc Tibial Nml Nml Nml Nml >12ms +1 Right VastusMed Femoral Nml Nml Nml Nml Nml Nml Left BicepsFemS Sciatic Nml Nml Nml Nml Nml Nml Left Semimembranosus Sciatic Nml Nml Nml Nml Nml Nml Left AntTibialis Dp Br Fibular Nml Nml Nml Nml Nml Nml Left Gastroc Tibial Nml Nml Nml Incr >12ms +2 Left RectFemoris Femoral Nml Nml Nml Nml Nml Nml Left L4 Parasp Rami Nml Nml Nml Nml Nml Nml Right L4 Parasp Rami Nml Nml Nml Nml Nml Nml Left L5 Parasp Rami Nml Nml Nml Nml Nml Nml Right L5 Parasp Rami Nml Nml Nml Nml Nml Nml MTDD
== END 2024-05-11 12:28 | disposition home or self-care (01) ==
PROVIDERS: PCP Family Medicine; Visit Provider Student in an Organized Health Care Education/Training Program
DX: G62.9 Polyneuropathy, unspecified (principal); G25.81 Restless legs syndrome
CPT/HCPCS: 95886; 95910

== ENCOUNTER 2024-08-18 06:54 | Outpatient (CLI) | payer OTHER, SELFPAY ==
[2024-08-18 07:53] LABS: Anion Gap 5 mmol/L (4-12); Blood Urea Nitrogen 25 mg/dL (9-20); Calcium 9.3 mg/dL (8.4-10.2); Carbon Dioxide 32 mmol/L (22-30); Chloride 102 mmol/L (98-107); Estimated Glomerular Filt Rate > 60; Glucose 94 mg/dL (65-110); Potassium 4.3 mmol/L (3.4-5.0); Sodium 139 mmol/L (137-145)
== END 2024-08-18 06:55 | disposition home or self-care (01) ==
PROVIDERS: PCP Family Medicine; Visit Provider Family Medicine
DX: R73.09 Other abnormal glucose (principal)
CPT/HCPCS: 36415; 80048; 82533

== ENCOUNTER 2024-09-13 07:03 | Outpatient (CLI) | payer OTHER, SELFPAY ==
[2024-09-13 09:10] LABS: Cortisol Random 0.99 ug/dL
== END 2024-09-13 07:04 | disposition home or self-care (01) ==
PROVIDERS: PCP Family Medicine; Visit Provider Family Medicine
DX: R79.89 Other specified abnormal findings of blood chemistry (principal)
CPT/HCPCS: 36415; 82533

== ENCOUNTER 2025-01-10 15:12 | Outpatient (CLI) | payer OTHER, SELFPAY ==
--- NOTE | ~2025-01-10 | XR_ITS ---
Right Hand Technique: PA and lateral views were obtained. Clinical History: Swelling, mass Findings: No acute fracture or dislocation is seen. Osseous alignment is anatomic. There is advanced degenerative change of the first CMC joint. There is mild to moderate degenerative change of the inte rphalangeal joint of the thumb. Soft tissues are unremarkable. Impression: Degenerative changes, as above. Reviewed, dictated and finalized at location . Impression: Degenerative changes, as above.
== END 2025-01-10 15:13 | disposition home or self-care (01) ==
LOC: MICIMG 15:13
PROVIDERS: PCP Family Medicine; Visit Provider Nurse Practitioner Adult Health
DX: R22.31 Localized swelling, mass and lump, right upper limb (principal); M19.041 Primary osteoarthritis, right hand
CPT/HCPCS: 73120

== ENCOUNTER 2025-01-16 13:36 | Outpatient (CLI) | payer OTHER, SELFPAY ==
--- NOTE | ~2025-01-16 | US_ITS ---
US soft tissue UE RT 01/16/2025 13:56 Indication: Localized swelling. Palpable mass. Procedure: High-resolution ultrasound of the lateral metacarpal phalangeal joints in the area of palp able concern Comparison: No prior studies for comparison. Findings: In the lateral metacarpal phalangeal joints there are no discrete solid or cystic masses id entified. No abnormal fluid collections. Lateral to the knee carpal metacarpal joint there is a soft tissue fluid. No discrete solid mass identified. Impression: 1: Fluid present lateral to the carpal metacarpal joint in the area of palpable concern which may be posttraumatic or inflammatory. Reviewed, dictated and finalized at location A. Impression: 1: Fluid present lateral to the carpal metacarpal joint in the area of palpable concern which may be posttraumatic or inflammatory.
== END 2025-01-16 13:37 | disposition home or self-care (01) ==
LOC: MICIMG 13:37
PROVIDERS: PCP Family Medicine; Visit Provider Nurse Practitioner Adult Health
DX: M25.441 Effusion, right hand (principal)
CPT/HCPCS: 76882

== ENCOUNTER 2025-06-05 07:11 | Outpatient (CLI) | payer OTHER, SELFPAY ==
[2025-06-05 08:04] LABS: Iron 125 ug/dL (49-181)
[2025-06-05 08:05] LABS: Anion Gap 6 mmol/L (4-12); Blood Urea Nitrogen 24 mg/dL (9-20); Calcium 9.3 mg/dL (8.4-10.2); Carbon Dioxide 29 mmol/L (22-30); Chloride 102 mmol/L (98-107); Estimated Glomerular Filt Rate > 60; Glucose 94 mg/dL (65-110); Magnesium 2.1 mg/dL (1.6-2.3); Potassium 4.3 mmol/L (3.4-5.0); Sodium 137 mmol/L (137-145)
[2025-06-05 08:14] LABS: Percent Iron Saturation 45 % (20-50)
[2025-06-05 08:45] LABS: Ferritin 248.00 ng/mL (11.1-264)
[2025-06-05 09:03] LABS: Thyroid Stimulating Hormone 4.490 uIU/mL (0.465-4.680)
== END 2025-06-05 07:12 | disposition home or self-care (01) ==
PROVIDERS: PCP Family Medicine; Visit Provider Family Medicine
DX: R79.89 Other specified abnormal findings of blood chemistry (principal); G60.9 Hereditary and idiopathic neuropathy, unspecified; G25.81 Restless legs syndrome; Z86.39 Personal history of other endocrine, nutritional and metabolic disease
CPT/HCPCS: 36415; 80048; 82728; 83540; 83550; 83735; 84443